=== PATIENT | female | born 1995 | race Caucasian/White ===

== ENCOUNTER 2016-12-18 21:36 | Emergency (ER) | payer OTHER ==
[2016-12-18] MEDS ORDERED: PREDNISONE 20 MG TABLET ONE (23:28)
[2016-12-18] MEDS ORDERED: CYCLOBENZAPRINE HCL 10 MG TABLET ONE (23:28)
[2016-12-18] MEDS ORDERED: ACETAMINOPHEN 500 MG TABLET ONE (23:28)
== END 2016-12-19 | disposition home or self-care (01) ==
LOC: ED 21:36
DX: M54.5 Low back pain (principal); R20.9 Unspecified disturbances of skin sensation; M54.2 Cervicalgia; V43.52XA Car driver injured in collision with other type car in traffic accident, initial encounter; Y92.488 Other paved roadways as the place of occurrence of the external cause